=== PATIENT | male | born 1960 | race Caucasian/White ===

== ENCOUNTER 2024-05-06 12:17 | Emergency (ER) | payer OTHER, SELFPAY ==
[2024-05-06 12:55] VITALS: BP 149/92
[2024-05-06 13:46] VITALS: BP 147/80
[2024-05-06 13:55] LABS: % Basophils 0.6 % (0-2); % Eosinophils 0.6 % (0-6); % Immature Granulocytes 0.4 % (0-0.5); % Lymphocytes 17.4 % (20.5-51.1); % Monocytes 9.1 % (1.7-9.3); % Neutrophils 71.9 % (42.2-75.2); Absolute Basophils 0.1 10^3/uL (0-0.2); Absolute Eosinophils 0.1 10^3/uL (0-0.7); Absolute Lymphocytes 1.8 10^3/uL (1.2-3.4); Absolute Monocytes 0.9 10^3/uL (0.1-0.6); Absolute Neutrophils 7.4 10^3/uL (1.4-6.5); Hematocrit 46.8 % (39.0-52.0); Hemoglobin 16.4 g/dL (13.0-18.0); Mean Corpuscular Hgb 33.6 pg (27.0-31.0); Mean Corpuscular Volume 95.9 fL (80.0-94.0); Mean Platelet Volume 9.1 fL (7.4-10.4); Nucleated Red Blood Cells % 0 % (-); Platelet Count 308 10^3/uL (130-400); Red Blood Cell Count 4.88 10^6/uL (4.70-6.10); Red Cell Dist. Width 12.3 % (11.5-14.5); White Blood Cell Count 10.3 10^3/uL (4.8-10.8)
[2024-05-06 14:10] LABS: ALT (SGPT) 36 U/L (0-50); Albumin 4.6 g/dl (3.5-5.0); Alkaline Phosphatase 108 U/L (38-126); Blood Urea Nitrogen 17 mg/dl (9-20); Calcium 9.8 mg/dl (8.4-10.2); Carbon Dioxide 27 mmol/L (22-30); Chloride 97 mmol/L (98-107); Glucose 113 mg/dl (70-99); Potassium 4.2 mmol/L (3.5-5.1); Sodium 134 mmol/L (135-145); Total Bilirubin 0.7 mg/dl (0.2-1.3); Total Protein 7.8 g/dl (6.3-8.2); eGFR > 60.00
[2024-05-06 14:17] LABS: Troponin I < 0.012 ng/ml
[2024-05-06 14:43] LABS: AST (SGOT) 31 U/L (17-59)
[2024-05-06 16:47] LABS: Troponin I < 0.012 ng/ml
--- NOTE | 2024-05-06 17:52 | ED.GENMED ---
History of Present Illness
General
Chief Complaint: Chest Pain
Source: patient
Time Seen by Provider: 05/06/24 17:44
History of Present Illness
History of Present Illness:
64-year-old male with past medical history of hypertension and hyperlipidemia presenting to the emergency department for evaluation after he developed some left-sided chest discomfort around 11 AM today while watching television and without any
other associated symptoms. Patient was going to go out to run some errands but decided to come to the ER instead due to the persistent nature of the pain. Notes pain at time of my examination is now mostly resolved. Patient did not take anything
for symptoms today and is otherwise denying any other associated symptoms including shortness of breath, palpitations, diaphoresis, exertional dyspnea orthopnea, lower extremity edema, fevers or infectious symptoms or any other concerns. Social
history was noted for nightly marijuana use. Family history was noted for CVA but patient denies any significant cardiac history.
Past History
Past History
ED Past Medical History: HTN, Hypercholesterolemia and Other (has had vertigo several times over the years)
ED Past Surgical History: Orthopedic
Social History
Tobacco: Non-smoker
Alcohol: Occasional (Beer)
Drug: Marijuana
Personal: Single
Living: alone
Employment: Retired
Family History
Family History: Cancer (family members with 'stomach cancer')
Review of Systems
Review of Systems
All Other Systems: ROS reviewed and negative except as documented in HPI and ROS
Phy Exam
Physical Exam
Physical Exam:
GENERAL: Alert , in no apparent distress
EYE: clear conjunctiva b/l
HEAD: NCAT
ENT: o/p clr, mmm.
CARDIAC: Regular rate and rhythm .
LUNGS: Clear breath sounds bilaterally, no acute respiratory distress, no wheezes/rales/rhonchi
ABDOMEN: Soft, without focal tenderness, no r/g, no cvat
NEUROLOGICAL: Alert and oriented
SKIN: Warm and dry, skin intact.
MUSCULOSKELETAL: No edema, well perfused.
PSYCH: Normal and appropriate interaction.
Scores
Heart Failure Risk
Heart Failure Risk Score: Not Applicable
Heart Score for Chest Pain Patients
STEMI patient?: No
History: Slightly or Non-Suspicious
ECG: Normal
Age: >45 - <65 years
Risk Factors: 1 or 2 Risk Factors
Troponin: </= Normal Limit
Heart Score for Chest Pain Patients: 2
Heart Score Risk: 2.5% MACE over next 6 weeks
Withdrawal Assessment of Alcohol
Withdrawal Assessment Completed?: Not applicable
Course
Orders/Labs/Results
Orders:
Orders
05/06/24 12:17
EKG [Electrocardiogram (*1)] Urgent
Reason for Study: Chest Pain
EKG- Treatment ONCE
05/06/24 13:12
Complete Blood Count/With Diff Urgent
Comprehensive Metabolic Panel Urgent
Troponin I Urgent
05/06/24 14:47
EKG- Treatment ONCE
05/06/24 16:14
Troponin I Urgent
05/06/24 16:15
Electrocardiogram (*1) Urgent
Reason for Study: Chest Pain
Abnormal Lab Results
05/06/24
13:12
MCV 95.9 H fL
(80.0-94.0)
MCH 33.6 H pg
(27.0-31.0)
Absolute Neuts (auto) 7.4 H 10^3/uL
(1.4-6.5)
Absolute Monos (auto) 0.9 H 10^3/uL
(0.1-0.6)
Lymphocytes % 17.4 L %
(20.5-51.1)
Sodium 134 L mmol/L
(135-145)
Chloride 97 L mmol/L
(98-107)
Creatinine 0.6 L mg/dL
(0.7-1.3)
Glucose 113 H mg/dl
(70-99)
05/06/24 13:12
05/06/24 13:12
Vital Signs
Initial and Last Documented VS:
Initial Vital Signs
Temp Pulse Resp BP Pulse Ox
98.4 F 73 20 149/92 95
05/06/24 12:55 05/06/24 12:55 05/06/24 12:55 05/06/24 12:55 05/06/24 12:55
Last Documented Vital Signs
Temp Pulse Resp BP Pulse Ox
98.7 F 80 17 178/90 96
05/06/24 13:46 05/06/24 18:17 05/06/24 18:17 05/06/24 18:17 05/06/24 18:19
MDM/Problems Addressed
Differential Diagnosis Includes:
Angina, PE, pericarditis/myocarditis, valvular dysfunction, GERD/gastritis, muscular etiology, no symptoms to suggest infectious etiology
MDM/Problems Addressed:
64-year-old male presenting to the emergency department for evaluation of chest discomfort that started around 11 AM, symptoms fully resolved at this time of my examination. Patient without any other associated symptoms. He does have some risk
factors including hypertension and hyperlipidemia. EKG done in triage nonischemic. Labs were initiated in triage and are initially unremarkable. Will check a 3-hour troponin. Given patient's low risk, offered chest pain hotline to which patient
was in agreement with. Anticipate discharge home as long as he remains chest pain-free and has a negative 3-hour troponin
Chronic conditions affecting care: HTN
*Pulse Oximetry
Patient hypoxic: no
*EKG
Heart Rate: 73
Rate: normal
Rhythm: sinus
Cadet: normal axis
Ischemia: no ischemia
*Critical Care Note
Total Time (30-74mins, 75-104mins- exclusive of procedures): Not Applicable
Patient Management
Escalation/DeEscalation of care consider admission/obs:
3-hour troponin negative. Patient feels comfortable being discharged home. Aware of return precautions to the ER but otherwise stable for discharge home.
ED Attending Note
-
Portions of this chart may have been created with voice recognition software.� Occasional wrong word or��sound alike� substitutions may have occurred due to the inherent limitations of voice recognition software.
Discharge Plan
Departure
Patient Disposition: Home (Routine Discharge)
Date of Disposition: 05/06/24
Time of Disposition: 17:52
Patient with high blood pressure during this ER visit?: Yes
Discharge Problem:
Chest pain
Instructions: Chest Pain DCA Follow Up
Prescriptions:
No Action
atenolol 100 mg Tablet
100 mg PO DAILY
amlodipine 5 mg Tablet
5 mg PO DAILY
lisinopril-hydrochlorothiazide 20-25 mg Tablet
1 tab PO DAILY
rosuvastatin 10 mg Tablet
10 mg PO DAILY
aspirin 81 mg Capsule
81 mg PO DAILY
Interventions
Interventions:
*Risk Screen - Suicide Last Done: 05/06/24 12:55
*General Assessment Last Done: 05/06/24 12:55
*Neglect/Abuse Screening Last Done: 05/06/24 12:55
*Nursing Disposition Last Done: 05/06/24 18:21
ED- Cardiac Assessment Last Done: 05/06/24 18:19
Discharge Date and Time
Discharge Date/Time: 05/06/24 18:21
Print Language: KOREAN
[2024-05-06 18:17] VITALS: BP 178/90
== END 2024-05-06 18:21 | disposition home or self-care (01) ==
LOC: EMR 12:17
PROVIDERS: Physician Assistant; EMERGENCY PHYSICIAN Emergency Medicine; FAMILY PHYSICIAN Family Medicine
DX: R07.89 Other chest pain (principal); I10 Essential (primary) hypertension; E78.00 Pure hypercholesterolemia, unspecified
CPT/HCPCS: 99284; 80053; 84484; 85025; 93005

== ENCOUNTER → 2024-07-08 09:43 | Outpatient (REF) | payer OTHER, SELFPAY | LOC: RCS 09:43 | PROVIDERS: ATTENDING PHYSICIAN Internal Medicine Cardiovascular Disease; FAMILY PHYSICIAN Family Medicine | DX: R07.2 Precordial pain (principal); R94.31 Abnormal electrocardiogram [ECG] [EKG] | CPT/HCPCS: 93017; 93350 ==